=== PATIENT | male | born 1930 | race Caucasian/White ===

== ENCOUNTER 2017-02-12 06:17 | Emergency (ER) | payer MEDICARE ==
[2017-02-12 07:04] LABS: #Lymphocytes 0.9 thou/uL (1.20-3.40); #Monocytes 0.2 thou/uL (0.11-0.59); %Basophils 0.1 % (0.0-1.0); %Eosinophils 0.3 % (0.0-10.0); %Lymphocytes 11.5 % (21.0-51.0); %Monocytes 2.8 % (0.0-10.0); Hematocrit 43.5 % (42.0-52.0); Mean Platelet Volume 6.4 fL (7.4-10.4); Red Blood Cell (RBC) Count 4.56 mill/uL (4.70-6.10); White Blood Cell (WBC) Count 8.2 thou/uL (4.8-10.8)
[2017-02-12 07:15] LABS: PTT 27.9 SEC (22.9-36.1); Prothrombin Time 14.8 SEC (12.0-14.7)
[2017-02-12 07:23] LABS: ALT (SGPT) 13 U/L (8-55); AST (SGOT) 22 U/L (5-34); Alkaline Phosphatase 180 U/L (40-150); Anion Gap 18 mmol/L (10-20); BUN (Urea Nitrogen) 52 mg/dL (8.4-25.7); Bilirubin, Total 2.6 mg/dL (0.2-1.2); Calc. Creatinine Clearance 0 mL/min (70-130); Calcium 7.9 mg/dL (7.8-10.44); Carbon Dioxide 15 mmol/L (23-31); Chloride 92 mmol/L (98-107); Estimated GFR-MDRD 47; Globulin 2.1 g/dL (2.4-3.5); Lipase 10 U/L (8-78); Protein, Total 4.5 g/dL (5.8-8.1)
[2017-02-12] MEDS ORDERED: Fentanyl 100 MCG/2 ML VIAL ONE ×2 (07:24→08:09)
--- NOTE | 2017-02-12 07:50 | RAD ---
AP VIEW CHEST: INDICATIONS: History of abdominal pain and abdominocentesis. COMPARISON: Prior exam dated 02/12/2017. FINDINGS: There is slight elevation of the right hemidiaphragm. There are tiny suspected bilateral pleural ef fusions. There are prominent vascular calcifications involving the thoracic aorta. There is mild b ibasilar atelectasis. No pneumothorax is evident. There is scattered degenerative change. IMPRESSION: 1. Small bilateral pleural effusions. 2. Mild elevation of the right hemidiaphragm. POS: [facility]
[2017-02-12] MEDS ORDERED: Lorazepam 2 MG/ML VIAL ONE (10:15)
[2017-02-12] MEDS ORDERED: Ondansetron HCl/PF 4 MG/2 ML Vial ONE (10:19)
--- NOTE | 2017-02-20 14:50 | EKG ---
Test Reason : DECREASED BP Blood Pressure : / mmHG Vent. Rate : 082 BPM Atrial Rate : 082 BPM P-R Int : 230 ms QRS Dur : 084 ms QT Int : 384 ms P-R-T Axes : 087 -33 074 degrees QTc Int : 448 ms Sinus rhythm with 1st degree A-V block Left axis deviation Low voltage QRS Inferior infarct , age undetermined Cannot rule out Anteroseptal infarct , age undetermined Abnormal ECG Confirmed by WALTER KING D.O. ([id number]), city editor JENN WOODALL ([id number]) on 02/20/2017 2:49:45 PM Referred By: FERNANDO Confirmed By:WALTER IKNG D.O.
== END 2017-02-12 10:28 | disposition home or self-care (01) ==
LOC: ERS 06:17
DX: R10.9 Unspecified abdominal pain (principal); I95.9 Hypotension, unspecified; D64.9 Anemia, unspecified; E11.9 Type 2 diabetes mellitus without complications; I25.2 Old myocardial infarction; I48.91 Unspecified atrial fibrillation; I25.10 Atherosclerotic heart disease of native coronary artery without angina pectoris; K74.60 Unspecified cirrhosis of liver; Z87.891 Personal history of nicotine dependence
CPT/HCPCS: 36415; 49083; 71010; 80053; 83605; 83690; 85025; 85610; 85730; 93005; 96361; 96374; 96375; 96376; J2001; J2060; J2405; J3010